=== PATIENT | female | born 1990 | race Caucasian/White ===

== ENCOUNTER 2017-05-27 02:04 | Emergency (ER) | payer OTHER, BC ==
[~2017-05-27] VITALS: Ht 152.4 cm; Wt 72.6 kg
--- NOTE | 2017-05-27 03:41 | Emergency Room Report ---
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 N Clinical Suspician of Infection? N Mental Status: 1 - Regular (Normal Baseline) Sepsis Risk:Possible Sepsis Risk Have you (or family members/close friends) recently traveled outside the [place]? N If Yes, where/when: Have you had exposure to infectious disease within the past month? TB? Other? Specify: Source patient, RN notes reviewed, RN/MD Exam Limitations no limitations Comment This is a 26-year-old female patient presenting to the emergency room with a RIGHT fourth finger injury, work-related. Patient advised she caught her finger in a conveyor belt just one hour prior to arrival. ALLERGIES Coded Allergies: diphenhydramine (From BENADRYL) (05/27/17) History Medical History General CAD? No Angina: No [place]: No Hypertension? No Hyperlipidemia? No CHF? No DVT? No PE? No COPD? No Asthma? No Anemia? No GERD? No Gastric ulcers? No GI Bleed? No Hernia? No Thyroid Problems? No Hypothyroidism? No CVA? No Seizures? No Diabetes? No Renal Insuffiency? No End Stage Renal Disease? No UTI? No Stones? No BPH? No GB Disease: No Nephritic Syndrome? No Asplenia? No Hepatitis? No Sickle Cell Disease? No Arthritis? No Migraines? No Cataracts? No Glaucoma? No MRSA? No HIV? No TB? No Anxiety? Yes Depression? Yes Cancer? No More? 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 No: respiratory distress. Lung Sounds bilateral: normal breath sounds, lungs clear. 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 No Comment Patient appears in stable medical condition, advised of x-ray findings and need to splint, treat with abx, etc. If not better, to follow up with ortho. Results/Orders Current Medication Orders Sig/Haydee Start time Last Medication Dose Route Stop Time Status Admin Diphtheria/Pertussis/ 0 .STK-MED ONE 05/27 0410 DC Tetanus Vacc IM Amoxicillin/ 0 .STK-MED ONE 05/27 0409 DC Clavulanate Potassium PO Amoxicillin/ 500 MG ONCE ONE 05/27 0400 DC 05/27 Clavulanate Potassium PO 05/27 0401 0419 Diphtheria/Pertussis/ 0.5 ML ONCE ONE 05/27 0400 DC 05/27 Tetanus Vacc IM 05/27 0401 0419 Ketorolac 60 MG ONCE ONE 05/27 0215 DC 05/27 Tromethamine IM 05/27 0216 0217 Ketorolac 0 .STK-MED ONE 05/27 0215 DC Tromethamine .ROUTE Orders Procedure Date/time Status STABILIZE JOINT 05/27 347 Active XRAY/CT/US XRAY/CT/US XRAY right 4th finger xray - negative Departure Departure Time of Disposition 346 Disposition DC Home or Self Care(routine) Clinical Impression Primary Impression: Finger contusion Qualifiers: Encounter type: initial encounter Finger: little finger Damage to nail status: without damage Laterality: right Qualified Code: S60.051A - Contusion of right little finger without damage to nail, initial encounter Condition STABLE Referrals Diogenes Holbrook MD: 2 Days-Call Office if not better Patient Instructions DI for Contusion Additional Instructions Please take the antibiotics prescribed as directed, alternate Motrin with Tylenol for pain control, change the dressing daily, watch carefully for any signs of possible local infection. Follow-up with one of the orthopedic surgeons or return promptly to the emergency room if any further medical concerns regarding this injury. Discharge Counseling Counseled pt/family regarding diagnosis, test results, medications/RX, home care, follow up needs Comment Please take the antibiotics prescribed as directed, alternate Motrin with Tylenol for pain control, change the dressing daily, watch carefully for any signs of possible local infection. Follow-up with one of the orthopedic surgeons or return promptly to the emergency room if any further medical concerns regarding this injury. Prescriptions Current Visit Scripts Amoxicillin/Potassium Clav (Augmentin 875-125 Tablet) 1 EACH PO BID #14 TAB ED Critical Care Critical Care No at [id number]
--- NOTE | 2017-05-27 03:41 | Emergency Room Report ---
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 N Clinical Suspician of Infection? N Mental Status: 1 - Regular (Normal Baseline) Sepsis Risk:Possible Sepsis Risk Have you (or family members/close friends) recently traveled outside the [place]? N If Yes, where/when: Have you had exposure to infectious disease within the past month? TB? Other? Specify: Source patient, RN notes reviewed, RN/MD Exam Limitations no limitations Comment This is a 26-year-old female patient presenting to the emergency room with a RIGHT fourth finger injury, work-related. Patient advised she caught her finger in a conveyor belt just one hour prior to arrival. ALLERGIES Coded Allergies: diphenhydramine (From BENADRYL) (05/27/17) History Medical History General CAD? No Angina: No [place]: No Hypertension? No Hyperlipidemia? No CHF? No DVT? No PE? No COPD? No Asthma? No Anemia? No GERD? No Gastric ulcers? No GI Bleed? No Hernia? No Thyroid Problems? No Hypothyroidism? No CVA? No Seizures? No Diabetes? No Renal Insuffiency? No End Stage Renal Disease? No UTI? No Stones? No BPH? No GB Disease: No Nephritic Syndrome? No Asplenia? No Hepatitis? No Sickle Cell Disease? No Arthritis? No Migraines? No Cataracts? No Glaucoma? No MRSA? No HIV? No TB? No Anxiety? Yes Depression? Yes Cancer? No More? 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 No: respiratory distress. Lung Sounds bilateral: normal breath sounds, lungs clear. 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 No Comment Patient appears in stable medical condition, advised of x-ray findings and need to splint, treat with abx, etc. If not better, to follow up with ortho. Results/Orders Current Medication Orders Sig/Haydee Start time Last Medication Dose Route Stop Time Status Admin Diphtheria/Pertussis/ 0 .STK-MED ONE 05/27 0410 DC Tetanus Vacc IM Amoxicillin/ 0 .STK-MED ONE 05/27 0409 DC Clavulanate Potassium PO Amoxicillin/ 500 MG ONCE ONE 05/27 0400 DC 05/27 Clavulanate Potassium PO 05/27 0401 0419 Diphtheria/Pertussis/ 0.5 ML ONCE ONE 05/27 0400 DC 05/27 Tetanus Vacc IM 05/27 0401 0419 Ketorolac 60 MG ONCE ONE 05/27 0215 DC 05/27 Tromethamine IM 05/27 0216 0217 Ketorolac 0 .STK-MED ONE 05/27 0215 DC Tromethamine .ROUTE Orders Procedure Date/time Status STABILIZE JOINT 05/27 347 Active XRAY/CT/US XRAY/CT/US XRAY right 4th finger xray - negative Departure Departure Time of Disposition 346 Disposition DC Home or Self Care(routine) Clinical Impression Primary Impression: Finger contusion Qualifiers: Encounter type: initial encounter Finger: little finger Damage to nail status: without damage Laterality: right Qualified Code: S60.051A - Contusion of right little finger without damage to nail, initial encounter Condition STABLE Referrals Diogenes Holbrook MD: 2 Days-Call Office if not better Patient Instructions DI for Contusion Additional Instructions Please take the antibiotics prescribed as directed, alternate Motrin with Tylenol for pain control, change the dressing daily, watch carefully for any signs of possible local infection. Follow-up with one of the orthopedic surgeons or return promptly to the emergency room if any further medical concerns regarding this injury. Discharge Counseling Counseled pt/family regarding diagnosis, test results, medications/RX, home care, follow up needs Comment Please take the antibiotics prescribed as directed, alternate Motrin with Tylenol for pain control, change the dressing daily, watch carefully for any signs of possible local infection. Follow-up with one of the orthopedic surgeons or return promptly to the emergency room if any further medical concerns regarding this injury. Prescriptions Current Visit Scripts Amoxicillin/Potassium Clav (Augmentin 875-125 Tablet) 1 EACH PO BID #14 TAB ED Critical Care Critical Care No at [id number]
[2017-05-27] MEDS ORDERED: AUGMENTIN 875-1 EACH PO ×2 (03:50→04:17)
[2017-05-27 04:09] VITALS: BP 134/74
[2017-05-27] MEDS ORDERED: AMOXICILLI250 MG/52 PO (04:16)
--- NOTE | 2017-05-27 05:15 | RADIOLOGY REPORT PS360 ---
[id number] (RING)-3 VIEWS CLINICAL INDICATION: PAIN, INJURY ORDERING PHYSICIAN: James Falcon MD PATIENT AGE: 26 years COMPARISON: None FINDINGS: No fracture, dislocation, or other significant anomalies. IMPRESSION: No acute finding
== END 2017-05-27 04:09 | disposition home or self-care (01) ==
LOC: ER 02:04
PROC: 2W3CX1Z Immobilization of Right Lower Arm using Splint (ICD-10-PCS; principal; 2017-05-27)
DX: S60.041A Contusion of right ring finger without damage to nail, initial encounter (principal); W31.89XA Contact with other specified machinery, initial encounter; Y92.63 Factory as the place of occurrence of the external cause; Y99.0 Civilian activity done for income or pay; Z23 Encounter for immunization